=== PATIENT | male | born 1995 | race American Indian/Alaskan Native ===

== ENCOUNTER 2017-06-27 13:14 | Emergency (ER) | payer MEDICAID ==
[~2017-06-27] VITALS: Ht 170.2 cm; Wt 83.9 kg
[2017-06-27] MEDS ORDERED: ATIVAN1 MG PO (13:46)
== END 2017-06-27 13:55 | disposition home or self-care (01) ==
LOC: ED 13:14
DX: F41.9 Anxiety disorder, unspecified (principal); J45.909 Unspecified asthma, uncomplicated; F32.9 Major depressive disorder, single episode, unspecified
CPT/HCPCS: 99283